=== PATIENT | male | born 1970 | race Caucasian/White ===

== ENCOUNTER 2022-10-16 11:33 | Day surgery (SDC) | payer BC, OTHER ==
[~2022-10-16] VITALS: Ht 177.8 cm; Wt 90.6 kg
[~2022-10-16 11:33] MED LIST: ASPI81CH33 PO; LISI20TA33 PO; METO1TAB33 PO; NS 1,000 ML IV ONE; ROSU40TA4 PO
[2022-10-16] MEDS ORDERED: propofoL 200 MG/20 ML VIAL As Ordered ONE ×2 (13:09→13:15)
== END 2022-10-16 13:47 | disposition home or self-care (01) ==
LOC: M OPP 11:33
PROVIDERS: ATTEND Surgery
DX: Z12.11 Encounter for screening for malignant neoplasm of colon (principal); K57.30 Diverticulosis of large intestine without perforation or abscess without bleeding; I10 Essential (primary) hypertension; E78.00 Pure hypercholesterolemia, unspecified; Z79.2 Long term (current) use of antibiotics; Z79.82 Long term (current) use of aspirin; Z79.899 Other long term (current) drug therapy; Z95.5 Presence of coronary angioplasty implant and graft